=== PATIENT | female | born 1945 | race Caucasian/White ===

== ENCOUNTER 2016-11-02 08:58 | Day surgery (SDC) | payer MEDICARE, OTHER ==
[~2016-11-02] VITALS: Ht 154.9 cm; Wt 127.0 kg
--- NOTE | 2016-11-02 07:30 | PCM.HPANE ---
Patient Data Surgeon Admitting Provider: Attending Provider:Umberto Martinez MD Primary Care Physician:Richard Houston DO Other Provider:Gely Huffingham Anesthesia Reason for Visit Chect Pain Ht/WT & BMI Body Mass Index Allergies Coded Allergies: TAPE (Verified Allergy, Severe, RASH, BLISTERS, SKIN PEELS OFF, 11/02/16) ibuprofen (Verified Allergy, Mild, ONLY IN LARGE DOSES, VERTIGO, 11/02/16) Past Anesthesia History Anesthesia History: Denies:: Abnormal Airway, Anesthesia Reactions (some nausea right after), Difficult Intubation, Fam Anesthesia Reaction, Fam Malignant Hypertherm, Malignant Hyperthermia Diabetes History Hx Diabetes?: No (pre diabetes) MRSA MRSA: No Medications Hypertension Medication: Yes Home Meds Incl Beta Sheree: No Reported Medications Glucosamine Sulfate 2Kcl (Glucosamine)1,000 Mg Tablet2,000 Mg PO DAILY 10/25/16 Omeprazole 20 Mg Capsule.dr20 Mg PO DAILY Ref 0 10/25/16 Naproxen Sodium (Aleve)220 Mg [id number] Mg PO Q12H 06/29/16 [Vitamin B6] No Conflict Check1,000 Mg PO DAILY 06/29/16 Cholecalciferol (Vitamin D3) (Vitamin D3)2,000 Unit Capsule2,000 Unit PO DAILY 06/29/16 Ca Carbonate/Vitamin D3/Vit K (Calcium + D Soft Chewable Tab)1 Each Tab.chew1 Each PO TID 06/29/16 Oxybutynin Chloride 5 Mg Tablet2.5 Mg PO TID 90 Days 06/29/16 Furosemide 20 Mg Tab20 Mg PO DAILY 90 Days 06/29/16 Pramipexole Dihydrochloride 0.5 Mg Tablet1 Mg PO HS 90 Days 06/29/16 Bilberry Fruit (Bilberry)500 Mg Capsule1,000 Mg PO DAILY 04/19/16 Eyelid Cleanser Combination #1 (Sterilid)48 Ml Foam..ml.1 Applic AD PRN 04/19/16 Triamcinolone Acetonide 60 Ml Lotion1 Applic TOP PRN Ref 0 04/19/16 Gabapentin 100 Mg [id number] Mg PO HS Ref 0 04/19/16 Letrozole 2.5 Mg Tablet2.5 Mg PO HS Ref 0 12/01/15 Lisinopril (Zestril)10 Mg Bleelr63 Mg PO DAILY 30 Days Ref 0 05/14/15 Lovastatin 20 Mg Eprook56 Mg PO HS #30 TABLET Ref 0 02/12/15 Levothyroxine 25 Mcg Nzfmfc79 Mcg PO DAILY 30 Days Ref 0 02/12/15 Clobetasol Propionate/Emoll (Clobetasol Emollient 0.05% Crm)15 Gm Cream..g.1 Appl TOP A PRN EXCEMA #1 TUBE 02/12/15 Allopurinol 100 Mg [id number] Mg PO HS 30 Days Ref 0 02/12/15 History History of ENT Problems?: No HEENT History: Positive for:: Cataracts (have had surgery for) Hearing Problem Sinus Problem (post nasal drip) Denies:: Abnormal Airway Difficult Intubation Dysphagia Hx of Heart Problems?: No Cardiovascular History: Positive for:: Chest Pain Edema Hypertension Denies:: AICD Atrial Fibrillation Cardiac Surgery Congestive Heart Failure Heart Murmur Irregular Heartbeat Pacemaker Thrombophlebitis Valvular Heart Disease Hx of Respiratory Problem?: Yes Respiratory History: Positive for:: Dyspnea (on exertion) Use of C-PAP Machine Denies:: Asthma COPD Chest Surgery Cough Emphysema Hemoptysis Oxygen Administration Pneumonia Tuberculosis Hx Neurologic Problems?: Yes Neurological History: Positive for:: Dizziness (vertigo) Denies:: Alzheimer's Disease CVA Dementia Headaches Parkinson's Disease Seizures Hx of GI Problems?: Yes Gastrointestinal History: Positive for:: Gastroesphageal Reflux (before GB taken out, now just occasional) Hiatal Hernia (small) Denies:: Cirrhosis Diverticulitis Gastrointestinal Bleeding Heartburn Hepatitis Rectal Bleeding Hx of Problems?: No Genitourinary History: Denies:: HX of Hemodialysis Kidney Stones Urinary Tract Infection HX of Peritoneal Dialysis: No Female Hx: Denies:: Currently Pelvic Inflammatory Skin History: Positive for:: History Skin Disorders? (CHRONIC BOILS IN PELVIC AREA- NEVER MRSA- CURRENTL HAS BUT NOT OPEN WOUND) Denies:: Pressure Ulcers Hx Musculoskeletal Problems?: Yes Musculoskeletal History: Positive for:: Joint Replacement (bilat knee) Denies:: Back Injury Musculoskeletal Trauma Hx of Psycho/Social Problems?: No Psycho Social History: Denies:: Anxiety Bipolar Disorder Hx Depression Suicide Attempt Hx Surgeries?: Yes (knees, breast, GB, ) Hx Any Other Health Problems?: Yes Other History: Positive for:: Cancer (breast) Hospitalization (aug 2015) Thyroid Disease Denies:: Endocrine Disease History Blood Transfusions: Denies:: Blood Transfusions Hx Diabetes: No (pre diabetes) Hx Alcohol Use: NoHx Substance Use: No Smoking Status: Never Smoker Have You Smoked inLast 12 mo: No Stop/Bang Treated for Sleep Apnea?: Yes Do You Have a CPAP Machine?: Yes JOAQUIM Risk Assessment: High Risk, =/>3 Yes JOAQUIM Category 4 OutPt Procedure: Yes Risk Assessment Category Category 1A: Patient has history of documented sleep apnea, and HAS NOT received any narcotic, sedative or anesthesia administration during this stay. Category 1B: Patient has history of documented sleep apnea, and HAS received any narcotic , sedative or anesthesia administration during this stay Category 2: Patient has SUSPECTED Obstructive Sleep Apnea, and HAS received any narcotic , sedative or anesthesia administration during this stay. Category 3: Patient has SUSPECTED Obstructive Sleep Apnea and HAS NOT received narcotic, sedative or anesthesia administration during this stay. Category 4: Outpatient in Procedural Areas with known sleep apnea or who screen positive for High Risk via the STOP/BANG questionnaire. Exam Exam General Appearance: Alert, Oriented X3, Cooperative, No Acute Distress HEENT/AIRWAY: MP 2 Lungs: Clear to Auscultation, Normal Air Movement Heart: Exam Unremarkable, Regular Rate/Rhythm, No Murmurs/Rubs/Gallops Plan Impression Patient chart reviewed, patient interviewed and anesthestic plan with risks, benefits, and alternatives discussed, and informed consent obtained. NPO Status: 0615 WATER WITH MEDS ASA Physical Status: ASA3 Severe Disease (BMI 52) Anesthetic Plan: MAC Bene/Risks/Altern/Consents: Yes HP Complete Prior to Induction: Yes Sudhakar Cordero MD Nov 02, 2016 07:30
[~2016-11-02 08:58] MED LIST: BILB500C PO; CA C1TAB83 PO; CHOL200047 PO; CLOB15CR3 TOP; FUR20 PO; GABA-500 PO; GLUC100016 PO; LETR2.5T4 PO; LEVO25TA5 PO; LISI-610 PO; LOVA20TA PO; Lactated Ringer's 1,000 ML IV ONE; NAPR220C11 PO; OMEP20CA11 PO; OXYB5TAB10 PO; PRAM0.5T10 PO; TRIA60LO3 TOP; Vitamin B6 PO; ZYL100 PO; [UNRECOGNIZED DRUG - CODE] AD
[2016-11-02 09:17] VITALS: BP 128/54; PULSE 72; RESP 16; O2SAT 96
[2016-11-02] MEDS ORDERED: Lactated Ringer's 1,000 ML IV SCH (09:33)
[2016-11-02] MEDS ORDERED: MetoCLOpramide 5 mg/mL 2 mL Inj IVPUSH PRN (09:35)
[2016-11-02] MEDS ORDERED: Ondansetron 2 mg/mL 2 mL Inj IVPUSH PRN (09:35)
[2016-11-02 10:13] VITALS: BP 122/62; PULSE 73; RESP 16; O2SAT 99
[2016-11-02 10:21] VITALS: BP 109/59; PULSE 70; RESP 16; O2SAT 97
--- NOTE | 2016-11-02 10:30 | ENDO ---
[address] [address] ENDOSCOPY PROCEDURE PATIENT: ARACELIS MCCAIN : 1945 MR#: [id number] ADMIT: 11/02/2016 JOB ID: [id number] DATE: 11/02/2016 PRIMARY PROVIDER: Richard Houston DO PROCEDURE: Esophagogastroduodenoscopy with biopsies. INDICATIONS: A 71-year-old female with atypical chest pain. Interestingly, since initiation of omeprazole daily, she has not had a recurrence of any of these spells. Upper endoscopy is pursued. EQUIPMENT: GIF H 190. SEDATION: Monitored anesthesia as provided by Dr. Sudhakar Cordero. COMPLICATIONS: None identified. PROCEDURE INFORMATION: After the risks and benefits were explained, written and verbal informed consent was obtained. The patient was brought into the endoscopy suite and placed into the left lateral decubitus position. Sedation was achieved using the above-stated medications with the addition of oxygen via nasal cannula. The scope was introduced into the mouth through the bite block, and advanced under direct visualization to the second portion of the duodenum. The scope was slowly withdrawn to carefully examine the mucosa for any defects or lesions. Retroflexed views were accomplished in the stomach. The stomach was decompressed. The scope removed the patient who the procedure reasonably well. FINDINGS: 1. Duodenum: No significant pathology identified from the bulb through to the second portion. 2. Stomach: No outlet obstruction. No ulcers. No mass lesions. Mild diffuse gastropathy was seen with several small benign appearing polyps in the mid and proximal stomach. A couple of these were removed for histopathologic analysis. Including retroflexed views, no other significant pathology was appreciated in the stomach. 3. Esophagus: The squamocolumnar junction generally correlated with the top of the gastric folds. The GE junction was judged to be at 39 cm from the incisors. In the 1 o'clock and 7 o'clock locations, there were a couple of tongues of probable Gillette's without active or acute inflammatory features. These extended up into the proximal esophagus by perhaps about a cm or so. Biopsy was taken from one of these tongues. The remainder of the esophagus appeared unremarkable. ENDOSCOPIC DIAGNOSES: 1. 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 2. Diminutive gastric polyps. 3. Gastropathy. RECOMMENDATIONS: 1. Await histopathology. 2. Continue omeprazole daily. 3. If symptoms recur, in spite of omeprazole, in that event I would recommend manometry and 24 hour pH testing on PPI. 4. If Gillette's is identified, it would be reasonable to consider a repeat surveillance in 9-12 months with anesthesia.
--- NOTE | 2016-11-02 15:43 | PCM.ANEP2 ---
Post Anesthesia Evaluation ASA/CMS Post Anesthesia VS in Patient's Normal Range?: Yes Resp Stable; Airway Patent?: Yes CV Function & Hydration Stable: Yes Mental Status Recovered?: Yes Pain control Satisfactory?: Yes N/V Control Satisfactory?: Yes Sudhakar Cordero MD Nov 02, 2016 15:43
--- NOTE | 2016-11-02 15:43 | PCM.ANEP1 ---
Post Anesthesia Phase 1 PACU Phase 1 Assessment Vital Signs Vital Signs Date Time Temp Pulse Resp B/P Pulse Ox O2 Delivery O2 Flow Rate FiO2 11/02/16 10:21 70 16 109/59 97 Room Air 11/02/16 10:13 73 16 122/62 99 Room Air 11/02/16 09:17 72 16 128/54 96 Room Air Anesthetic Administered: MAC Level of Alertness: Awake, talking LE's with Equal Strength: Yes Pain: No Nausea or Vomiting: No Oxygen Delivery: Nasal Cannula Lungs: Clear to Auscultation, Normal Air Movement Dermatome Level: Full Sensation Sudhakar Cordero MD Nov 02, 2016 15:43
--- NOTE | 2016-11-03 10:22 | PATH ---
SURGICAL PATHOLOGY Attending Physician:Cadence Downey CASE STATUS: Signed Out PATIENT NAME: ARACELIS MCCAIN PID: [id number] : 1945 DATE COLLECTED:11/02/2016 15:44 SPECIMEN: 1: Stomach, Polyp, Biopsy 2: Esophagus, Biopsy CLINICAL HISTORY: A: GASTRIC POLYP B: DISTAL ESOPHAGUS BIOPSY FINAL DIAGNOSIS: A. Gastric Polyp: Polypoid fragment of gastric corpus with no evidence of malignancy or dysplasia. Negative for intestinal metaplasia. B. Esophagus, Biopsy: Gastric glandular mucosa with intestinal metaplasia, consistent with Gillette's esophagus. No evidence of malignancy or dysplasia. ICD10: K22.70 GROSS DESCRIPTION: The specimen is received in two formalin filled containers labeled with the patient's name. 1). The specimen is sublabeled "gastric polyps" and consists of 2 portions of tissue which aggregate to 0.2 x 0.2 x 0.2 CM. The specimen is entirely submitted in cassette 1A. 2). The specimen is sublabeled "distal esophagus" and consists of a 0.2 x 0.2 x 0.2 CM portion of tissue which is entirely submitted in cassette 2A. 11/02/2016 [facility] ICD-9 CODES: CPT CODES: 1: 12771 2: 36746 Electronically Signed Out Warren Moise MD [facility] Pathology [facility] [address], [place] [address] Technical component performed at [facility], [address] [place] [address] Ave[address], [place], [address]
== END 2016-11-02 23:59 | disposition home or self-care (01) ==
LOC: END 08:58
PROVIDERS: ATTEND Internal Medicine Gastroenterology
DX: K22.70 Barrett's esophagus without dysplasia (principal); K31.7 Polyp of stomach and duodenum; I10 Essential (primary) hypertension; K21.9 Gastro-esophageal reflux disease without esophagitis; E78.5 Hyperlipidemia, unspecified; G47.33 Obstructive sleep apnea (adult) (pediatric); E03.9 Hypothyroidism, unspecified; E66.01 Morbid (severe) obesity due to excess calories; Z92.3 Personal history of irradiation; Z85.3 Personal history of malignant neoplasm of breast
CPT/HCPCS: 43239; 88305; J7120